=== PATIENT | female | born 1990 | race Caucasian/White ===

== ENCOUNTER 2017-04-29 13:05 | Outpatient (CLI) | payer MEDICAID, SELFPAY ==
[2017-04-29 13:30] VITALS: BMI 25.1
--- NOTE | 2017-04-30 05:44 | OB.TRI.NOTE ---
History of Present Illness Reason For Visit: NST Date of Service: 04/29/17 Gestational age: 40 History of Present Illness: 26 yo at 40 2/7 wk presents for twice weekly NST as has anterior placenta and unable to feel movement. No C/O UCs, ROM, or vaginal bleeding Home Medications Medication Instructions Recorded Vits [Prenatabs FA ] 1 tablet PO DAILY 03/22/13 DiphenhydrAMINE [Benadryl] 25 mg PO QHS PRN PRN 04/22/17 Allergies hydrocodone bitartrate [From Vicodin] Adverse Reaction (Verified 04/19/17 20:26) Vomiting NST - FHR Rate Baby A Baseline: 120-130 with accels to 150s Variability:: Moderate Accelerations:: 15 x 15 Decelerations:: Variable - to 105 lasting less than 10 sec . (ULISES in ofc 3-4 d ago -- 20 cm) NST Reactive:: Yes, Appropriate for gestational age FHR Category:: Category I Uterine Activity:: Irreg , rare UC noted. Impression/Plan 40 2/7 wk EGA Unable to feel movement, anterior placenta NST reactive. Home. RTO for scheduled appt Consider induction NST twice weekly until delivery
== END 2017-04-29 14:30 | disposition home or self-care (01) ==
LOC: WPOUT 13:23 → WP 13:25
PROVIDERS: Family Provider Family Medicine; PCP Family Medicine; Visit Provider Obstetrics & Gynecology
DX: O43.893 Other placental disorders, third trimester (principal); O36.8190 Decreased fetal movements, unspecified trimester, not applicable or unspecified; Z3A.40 40 weeks gestation of pregnancy
CPT/HCPCS: 59025; 59050; 99218; G0378

== ENCOUNTER 2017-04-30 12:25 | Outpatient (CLI) | payer MEDICAID, SELFPAY ==
[2017-04-30 12:46] VITALS: BMI 25.1
--- NOTE | 2017-04-30 20:17 | OB.TRI.NOTE ---
History of Present Illness Reason For Visit: FALL Date of Service: 04/30/17 Gestational age: 40 Home Medications Medication Instructions Recorded Vits [Prenatabs FA ] 1 tablet PO DAILY 03/22/13 DiphenhydrAMINE [Benadryl] 25 mg PO QHS PRN PRN 04/22/17 Allergies hydrocodone bitartrate [From Vicodin] Adverse Reaction (Verified 04/19/17 20:26) Vomiting - Pertinent Past Medical History Pertinent Past Medical History: 26 yo with anterior placenta, not able to feel FM. Presents after fall onto her buttocks, hit the step on her truck. No abdominal trauma. Sent in for monitoring and eval / fall. NST - FHR Rate Baby A Baseline: 110-120 with accels to 150s Variability:: Moderate Accelerations:: 15 x 15 Decelerations:: None NST Reactive:: Yes, Appropriate for gestational age FHR Category:: Category I Uterine Activity:: No UCs noted Impression/Plan 26 yo at 40 3/7 wk EGA s/p minor fall. Reactive NST. No UCs, no labor Home. RTO as scheduled for next PNV.
== END 2017-04-30 13:55 | disposition home or self-care (01) ==
LOC: WPOUT 12:41 → WP 12:43
PROVIDERS: Family Provider Family Medicine; PCP Family Medicine; Visit Provider Obstetrics & Gynecology
DX: Z04.3 Encounter for examination and observation following other accident (principal); O36.8130 Decreased fetal movements, third trimester, not applicable or unspecified; W17.89XA Other fall from one level to another, initial encounter; Y93.9 Activity, unspecified; Y92.9 Unspecified place or not applicable; Y99.9 Unspecified external cause status; Z3A.40 40 weeks gestation of pregnancy
CPT/HCPCS: 59025; 59050; 99218; G0378

== ENCOUNTER 2017-05-02 06:52 | Inpatient (IN) | payer MEDICAID, SELFPAY ==
[2017-05-02 07:17] VITALS: BMI 24.9
[2017-05-02] MEDS: Lactated Ringers 1,000 ML 50 ML IV ×2 (07:35→12:12)
[2017-05-02] MEDS: Oxytocin 30 units/NS 500 ml 30 UNITS/500 ML IV.SOLN IV (07:45)
[2017-05-02 08:13] LABS: Hematocrit 35.6 % (37-47); Hemoglobin 11.8 g/dl (12.0-15.0); Mean Corp Hgb Conc 33.1 g/gl (32-36); Mean Corpuscular Hgb 30.9 pg (27.0-32.0); Mean Corpuscular Volume 93.2 fL (81-99); Mean Platelet Vol. 9.4 fl (6.2-12.0); Platelet Count 172 K/mm3 (150-450); RBC Distribution Width CV 13.7 % (11.6-14.6); RBC Distribution Width SD 46.4 fl (35.1-43.9); Red Blood Count 3.82 M/mm3 (4.2-5.4); White Blood Count 10.4 K/mm3 (4.4-11.0)
[2017-05-02 08:20] LABS: Scan Indicated on CBC? Y/N NO
--- NOTE | 2017-05-02 08:44 | PCM.PN.BLA ---
Progress Note LABOR PROGRESS NOTE Here for induction of labor 40+wks. Feeling some mild cramping and not anything strong. AVSS EFM 110-120s avg variability. Accels Category I tracing UCs rare and very irregular CX: high/FT (1-2 cm) No AROM yet A/P: 40+ wk induction. Pitocin induction. AROM as able.
--- NOTE | 2017-05-02 12:28 | PN_ITS ---
Progress Note LABOR INDUCTION 40+ wks. Feeling a little cramping, but nothing bad AVSS Pitocin at 14 mIU/min. EFM 110-120s with avg variability, accels. Category I tracing UCs q 4-5 mostly CX: /mod consistency, high. AROM vtx well applied to cervix. Clear fluid., mod amt. A/P: 40+ wk induction Continue pitocin. AROM performed. EFM reassuring.
--- NOTE | 2017-05-02 17:30 | PCM.PN.BLA ---
Progress Note Labor progress note Induction 40 5/7 wk Comfortable w/ epidural. Pitocin cut in half to 10 mIU/min d/t variable deceleration noted. EFM 110-120s avg variability. One variable noted. Now occasional early decel UC q 3-5 mins at present CX: 6/80/-[address] A/P: 40 5/7 wk induction progress noted. Hinojosa to be inserted . Watch progress and descent. Continue pitocin per protocol to adequate mVUs Anticipate .
[2017-05-02] MEDS: Oxytocin 30 units/NS 500 ml 30 UNITS/500 ML IV.SOLN 334 UNITS IV (18:10)
--- NOTE | 2017-05-02 18:17 | PCM.OB.VAG ---
Vaginal Delivery Maternal Presentation: Medically Indicated Induction 40 5/7 wk EGA induction of labor, postdates Method of Induction: Pitocin, Amniotomy Amniotic Membrane Rupture Type: Artificial Amniotic Fluid Description: Clear Final ANTONI: 04/27/17 Final ANTONI Source: US <20 weeks Gestational age: 40 Weeks and 5 Days Date of Procedure: 05/02/17 Pre-Operative Diagnosis: 40 5/7 wk EGA induction Post-Operative Diagnosis: Same Surgery/ Procedure Performed: Spontaneous Vaginal Delivery Type of Anesthesia: Epidural Description of Procedure: of a rocha viable male over intact perineum. Head delivered LUIS ALBERTO. Nuchal cord x one reduced at delivery. Shoulders delivered easily. OP and nares bulb suctioned on abdomen. Baby vigorous and crying to maternal abdomen. Delayed cord clamping and then clamped and cut. Routine cord blood collected for typing. PP exam: no laceration, no repair Placenta delivered by spont expulsion, expression 3V cord, normal appearing and intact with trailing membranes EBL 350 cc pt and tolerated delivery well. to recovery, stable condition. Ray Jaime Counts correct x two. Presentation: Vertex, LUIS ALBERTO Placental Delivery Description: Spontaneous, Expressed Placenta Disposition: [facility] Cord Vessel Description: 3 Vessels Nuchal Cord Compression: Without compression Cord Entanglement: Around neck x 1, loose Drain: Hinojosa to straight drain Estimated Blood Loss: 350 A gender: Male (1 minute): 9 (5 minute): 9 Episiotomy Description: None Laceration: None Medications given after delivery: IV Pitocin Complications: None
--- NOTE | 2017-05-02 18:21 | PCM.DCVAG ---
Discharge Diet: No Restrictions Discharge Activity: May Shower, May Take a Tub Bath May resume sexual activity in: 4-6 weeks Additional Activity Instructions:: Nothing in the vagina for 4-6 weeks. You may return to work/school in 6 weeks. Additional Instructions: If you experience any of the following, contact your healthcare provider. Bleeding that soaks a pad every hour for 2 hours Fever 100.4 or higher Unrelieved abdominal pain Problems urinating (including inability to urinate or burning while urinating). Visual changes Severe headache Flu-like symptoms Pain or redness in one of both of your breasts Pain, warmth, tenderness or swelling in your legs, especially the calf area Frequent nausea and vomiting Symptoms of depression or anxiety If you experience any of the following, call 911 or go to the nearest Emergency Room. Chest pain Problems breathing Seizure activity Partial or complete paralysis of a body part, slurred speech, weakness or drooping of the face, or a sudden inability to walk or hold your balance Allergies/Adverse Reactions: Allergies hydrocodone bitartrate [From Vicodin] Adverse Reaction (Verified 05/02/17 08:40) Vomiting Medications to take at Discharge Vits [Prenatabs FA ] 1 tablet PO DAILY 03/22/13 DiphenhydrAMINE [Benadryl] 25 mg PO QHS PRN PRN 04/22/17 Please Follow Up With: Lauren Orta MD - [phone] When: Call to make an appointment with your doctor in 6 weeks. Primary Care Physician: Khanh Buchanan MD [Primary Care Provider] - Proposed Discharge Date: 05/04/17
--- NOTE | 2017-05-02 18:22 | DCINST_ITS ---
Discharge Diet: No Restrictions Discharge Activity: May Shower, May Take a Tub Bath May resume sexual activity in: 4-6 weeks Additional Activity Instructions:: Nothing in the vagina for 4-6 weeks. You may return to work/school in 6 weeks. Additional Instructions: If you experience any of the following, contact your healthcare provider. * Bleeding that soaks a pad every hour for 2 hours * Fever 100.4 or higher * Unrelieved abdominal pain * Problems urinating (including inability to urinate or burning while urinating) . * Visual changes * Severe headache * Flu-like symptoms * Pain or redness in one of both of your breasts * Pain, warmth, tenderness or swelling in your legs, especially the calf area * Frequent nausea and vomiting * Symptoms of depression or anxiety If you experience any of the following, call 911 or go to the nearest Emergency Room. * Chest pain * Problems breathing * Seizure activity * Partial or complete paralysis of a body part, slurred speech, weakness or drooping of the face, or a sudden inability to walk or hold your balance Allergies/Adverse Reactions: Allergies hydrocodone bitartrate [From Vicodin] Adverse Reaction (Verified 05/02/17 08:40) Vomiting Medications to take at Discharge Vits [Prenatabs FA ] 1 tablet PO DAILY 03/22/13 DiphenhydrAMINE [Benadryl] 25 mg PO QHS PRN PRN 04/22/17 Please Follow Up With: Lauren Orta MD - [phone] When: Call to make an appointment with your doctor in 6 weeks. Primary Care Physician: Khanh Buchanan MD [Primary Care Provider] - Proposed Discharge Date: 05/04/17
[2017-05-02] MEDS: Methylergonovine 0.2 MG/ML Ampul IM (18:35)
[2017-05-02] MEDS: Oxytocin 30 units/NS 500 ml 30 UNITS/500 ML IV.SOLN 167 UNITS IV (18:40)
[2017-05-02] MEDS: Ondansetron 4 MG/2 ML Vial IV (20:05)
[2017-05-02] MEDS: Oxytocin 30 units/NS 500 ml 30 UNITS/500 ML IV.SOLN 999 UNITS IV (20:12)
[2017-05-02] MEDS: Acetaminophen 500 MG Tablet 1000 MG PO (20:24)
[2017-05-02 21:01] VITALS: BP 110/66; PULSE 72; RESP 18; TEMP 37.1; O2SAT 98
[2017-05-02] MEDS: 0.9% Saline Lock 10 ML Syringe IV (21:33)
--- NOTE | 2017-05-02 22:22 | NURSING ---
2205 epidural cath d/c'd with blue tip intact. bandaid applied 2208 bray cath d/c'd pt tolerated well
[2017-05-02 23:31] VITALS: BP 103/60; PULSE 82; RESP 16; TEMP 36.8; O2SAT 98
[2017-05-02] MEDS: Ibuprofen 600 MG Tablet PO (23:33)
[2017-05-03 04:39] VITALS: BP 107/59; PULSE 61; RESP 17; TEMP 36.9; O2SAT 96
[2017-05-03] MEDS: Acetaminophen 500 MG Tablet 1000 MG PO ×2 (04:44→11:49)
[2017-05-03 05:12] LABS: Hematocrit 35.1 % (37-47); Hemoglobin 11.8 g/dl (12.0-15.0); Mean Corp Hgb Conc 33.6 g/gl (32-36); Mean Corpuscular Hgb 31.4 pg (27.0-32.0); Mean Corpuscular Volume 93.4 fL (81-99); Mean Platelet Vol. 9.4 fl (6.2-12.0); Platelet Count 178 K/mm3 (150-450); RBC Distribution Width CV 13.5 % (11.6-14.6); RBC Distribution Width SD 44.7 fl (35.1-43.9); Red Blood Count 3.76 M/mm3 (4.2-5.4); White Blood Count 15.1 K/mm3 (4.4-11.0)
[2017-05-03 05:14] LABS: Scan Indicated on CBC? Y/N NO
--- NOTE | 2017-05-03 07:29 | PCM.PN.OB ---
Subjective: PPD#1 Induction at 40 5/7 wk EGA Doing well and considering going home later today. Would like to go home in evening. Breast feeding well. Cramping some, but manageable. Bleeding much brand executive - Physical Exam General: Alert, Oriented x3, Cooperative, No apparent distress HEENT: Atraumatic Neck: Supple Abdomen: Soft - fundus firm NT approx 1-2 cm inferior to umbilicus Neurological: Cranial nerves II-XII grossly intact Psych/Mental Status: Normal Affect Vital Signs Temp Pulse Resp BP Pulse Ox 98.4 F 61 17 107/59 L 96 05/03/17 04:39 05/03/17 04:39 05/03/17 04:39 05/03/17 04:39 05/03/17 04:39 Oxygen Delivery Method Room Air Weight: 72.121 kg Body Mass Index (BMI) 24.9 Intake and Output for Last 24 Hours 05/01/17 05/02/17 05/03/17 23:59 23:59 23:59 Intake Total 1201 / 1201 Output Total 1300 / 1300 300 / 300 Balance -99 / -99 -300 / -300 Laboratory Tests Past 24 Hrs 05/02/17 05/02/17 05/03/17 07:35 07:35 04:50 WBC 10.4 15.1 H RBC 3.82 L 3.76 L Hgb 11.8 L 11.8 L Hct 35.6 L 35.1 L MCV 93.2 93.4 MCH 30.9 31.4 MCHC 33.1 33.6 RDW 13.7 13.5 RDW Differential 46.4 H 44.7 H Plt Count 172 178 MPV 9.4 9.4 Blood Type O POSITIVE Antibody Screen NEGATIVE Assessment/Plan PPD#1 induction 40 5/7 wk EGA Hgb unchanged from admission CBC. Doing well. Requests dischg home later in evening. D/C home today. Instructions given. RTO in 6 wk for pp check
[2017-05-03] MEDS: Ibuprofen 600 MG Tablet PO ×2 (07:39→15:36)
[2017-05-03 08:00] VITALS: BP 105/65; PULSE 61; RESP 16; TEMP 36.5; O2SAT 99
[2017-05-03] MEDS: Prenatal Vits Tablet 1 TABLET PO (10:40)
[2017-05-03 11:51] VITALS: BP 109/59; PULSE 66; RESP 16; TEMP 36.5; O2SAT 98
[2017-05-03 15:30] VITALS: BP 106/62; PULSE 65; RESP 18; TEMP 36.3; O2SAT 99
[2017-05-03 19:25] VITALS: BP 110/60; PULSE 73; RESP 18; TEMP 36.6; O2SAT 98
== END 2017-05-03 20:10 | disposition home or self-care (01) | DRG 373 ==
PROVIDERS: Admitting Provider Obstetrics & Gynecology; Family Provider Family Medicine; PCP Family Medicine; Visit Provider Obstetrics & Gynecology
DX: O48.0 Post-term pregnancy (principal); O36.8130 Decreased fetal movements, third trimester, not applicable or unspecified; O69.81X0 Labor and delivery complicated by cord around neck, without compression, not applicable or unspecified; O76 Abnormality in fetal heart rate and rhythm complicating labor and delivery; Z04.3 Encounter for examination and observation following other accident; W17.89XA Other fall from one level to another, initial encounter; Y93.9 Activity, unspecified; Y92.9 Unspecified place or not applicable; Y99.9 Unspecified external cause status; Z86.2 Personal history of diseases of the blood and blood-forming organs and certain disorders involving the immune mechanism; Z3A.40 40 weeks gestation of pregnancy; Z37.0 Single live birth
CPT/HCPCS: 59025; 59050; 85027; 86850; 86900; 99218; J7120; A4216; G0378; J2405

== ENCOUNTER → 2017-06-20 22:09 | Outpatient (CLI) | payer MEDICAID, SELFPAY ==
[2017-06-21 01:27] LABS: Chlamydia Trachomatis by PCR Negative (Negative); Neisserai gonorrhoeae by PCR Negative (Negative); Probe Check PASS; Sample Adequacy Control PASS; Specimen Processing Control PASS
== END ==
PROVIDERS: Family Provider Family Medicine; PCP Family Medicine; Visit Provider Obstetrics & Gynecology
DX: Z11.3 Encounter for screening for infections with a predominantly sexual mode of transmission (principal)
CPT/HCPCS: 87491; 87591

== ENCOUNTER 2019-09-29 13:35 | Emergency (ER) | payer SELFPAY ==
[2019-09-29 13:37] VITALS: BP 143/91; PULSE 71; RESP 17; TEMP 37; O2SAT 99; BMI 21.5
--- NOTE | 2019-09-29 13:50 | RAD_ITS ---
STUDY: X-RAY - LEFT KNEE REASON FOR EXAM: Female, 29 years old. Dislocated patella after slipping. Displaced and reduced. TECHNIQUE: 4 view(s) of the knee. COMPARISON: None. FINDINGS: Osseous structures about the knee are intact, normally articulated, normally mineralized. The patella articulates normally within the trochlear groove. There is no evidence of kissing contusion or bone injury. There is a very minimal suprapatellar knee joint effusion. RAD/Knee 4 or More Views IMPRESSION: Minimal effusion. Intact osseous structures appropriately articulated. Electronically Signed: Anant Benavidez MD at 15:02 EDT Tel , Service support ,
--- NOTE | 2019-09-29 14:03 | ED.DCSUM_ITS ---
History of Present Illness Chief Complaint: Lower Extremity Injury Informant: Patient Onset: Yesterday Context: Sudden Onset Timing: Continuous Quality: Pain Location: Left knee Current Severity: Mild Maximum Severity: Severe Worsened by: Weightbearing and movement Relieved by: Much improved if supine Associated Symptoms: Difficulty ambulating. Dislocated patella laterally Narrative: Patient is a 29-year-old female who slipped on water. She states she dislocated her patella. The patella was located superior and lateral to its present position. She states she pushed it back in. The knee swelled. She presents because of increased pain and swelling. She denies prior history of patella subluxation or dislocation. She has never seen orthopedic surgeon. She denies paresthesia, anesthesia or motor weakness. She has no other complaints. Prior similar symptoms: No Recent Illness/Hospitalization: No - Past Medical History (1) No significant past medical history Status: Acute Past Medical History - Allergies and Home Meds Allergies/Adverse Reactions: Allergies hydrocodone bitartrate [From Vicodin] Adverse Reaction (Verified 09/29/19 13:36) Vomiting Primary Care Physician: Khanh Buchanan MD [Primary Care Provider] - Prior records reviewed: Yes Past Medical History: None Surgical History: noncontributory Lives: With Family Smoking Status: Never smoker Alcohol: None Drugs: None Review of Systems General: Denies: Chills, Fever, Malaise Musculoskeletal: Reports: Swelling, Extremity Pain. Denies: Myalgias, Arthralgias, Neck pain, Back pain Skin: Denies: Rash, Abrasions, Wounds Neurological: Denies: Weakness, Parasthesia, Numbness Hematologic: Denies: Easy bruising Physical Exam Vital Signs/Narrative: Vital Signs Temp Pulse Resp BP Pulse Ox 09/29/19 13:37 98.6 F 71 17 143/91 H 99 Inital Vital Signs reviewed: Yes General: Well nourished, Well developed, No Acute Distress Head: Normocephalic, Atraumatic Eyes: Perrl, EOMI. Negative for: Pale conjunctiva, Scleral icterus ENT: Moist mucous membranes, No rhinorrhea Neck: Supple, Nontender Cardiovascular: Regular rate, Regular rhythm Respiratory: No distress Extremities: No edema, Tenderness, - - Left knee is swollen. The patella is slightly ballotable. There is an effusion. She complains of pain with varus and valgus stress testing. There is no laxity. She does have mild joint line tenderness. She is able to extend to 180 degrees and flex to approximately 100 degrees. Unable to perform modified Heike's test. Lockman's test was negative for laxity. DP and PT pulse are palpable. There is no pain the patient over the lateral medial malleolus.. Negative for: Nontender, Edema, Calf Tenderness Skin: Normal color, No rash, No Trauma. Negative for: Cyanosis, Diaphoresis, Jaundice Neurological: Alert, Oriented x3, Cranial nerves II-XII grossly intact, Normal Strength, Normal Sensation Psychological: Normal affect Diagnostic/Tx/Re-eval Chest X-Ray - ED: Read by ED Physician, - - 4 view x-ray of the knee reveals a suprapatellar effusion; otherwise, the x-ray is unremarkable i.e. no fracture, subluxation or dislocation. 09/29/19 13:50 Knee 4 or More Views [RAD] Stat - Medical Decision Making There is obtained to rule out fracture. No fracture was noted. There was an effusion noted. Patient was treated with knee immobilizer and referred to orthopedics line maintainer section Dr. Bairon Mcrae ED Disposition - Plan for ED Patient: Disposition: Home or Assisted Living Diagnosis: Dislocation of patella, left, closed Instructions: ED Dislocation Patella Referrals: Khanh Buchanan MD [Primary Care Provider] - Bairon Mcrae DO [STAFF PHYSICIAN] - 3-5 Days Additional Instructions: Knee immobilizer while up and about. May remove when you go to bed. Elevate knee as much as possible. Apply ice for the next 2 to 3 days. Take either Tylenol or ibuprofen for discomfort.
== END 2019-09-29 14:34 | disposition home or self-care (01) ==
PROVIDERS: Emergency Provider Emergency Medicine; PCP Family Medicine
DX: S83.005A Unspecified dislocation of left patella, initial encounter (principal); W01.0XXA Fall on same level from slipping, tripping and stumbling without subsequent striking against object, initial encounter; Y93.9 Activity, unspecified; Y92.9 Unspecified place or not applicable
CPT/HCPCS: 73564; 99283

== ENCOUNTER → 2019-10-26 08:39 | Outpatient (CLI) | payer SELFPAY ==
[2019-10-23 08:11] VITALS: BMI 21.5
--- NOTE | 2019-10-26 08:40 | MRI_ITS ---
STUDY: MRI LEFT KNEE REASON FOR EXAM: Female, 29 years old. Pain. Recent patellar dislocation. TECHNIQUE: Standardized fat and water weighted pulse sequences were obtained in all 3 orthogonal planes. COMPARISON: X-ray September 29, 2019 FINDINGS: Normal medial meniscus. Normal hyaline cartilage of the medial femorotibial compartment. Normal medial femoral condyle and tibial plateau. There is a partial sprain of the MCL with interstitial and periligamentous edema. Normal distal semimembranosus, gracilis and semitendinosus tendons. Normal lateral meniscus. Normal hyaline cartilage of the lateral femorotibial compartment. There is reactive marrow edema of the lateral femoral condyle. Normal proximal tibiofibular articulation. Normal lateral collateral (fibular) ligament. Normal popliteus tendon. Normal biceps femoris tendon. Normal anterior cruciate ligament (ACL). Normal posterior cruciate ligament (PCL). Normal congruent patellofemoral articulation. There is marrow edema of the inferior medial patella. Normal hyaline cartilage of the patellofemoral compartment. There is a partial sprain of the medial parapatellar retinaculum. There is sprain and tear of the medial patellofemoral ligament, series 2 image . Normal quadriceps tendon. Normal patellar tendon. Normal Hoffa''s fat pad. There is a small volume joint effusion. The soft tissues are unremarkable. The otherwise visualized osseous structures are unremarkable. MRI/Lower Ext Joint Only (Routine) IMPRESSION: Sequela of recent dislocation with bone bruise of the patella and lateral femoral condyle. Sprain and tears of the medial patellar retinaculum and medial patellofemoral ligament. Electronically Signed: Reg Villarreal MD at 11:20 EDT , Service support ,
== END ==
LOC: MRI 08:40
PROVIDERS: PCP Family Medicine; Referring Provider Orthopaedic Surgery; Visit Provider Orthopaedic Surgery
DX: M23.92 Unspecified internal derangement of left knee (principal)
CPT/HCPCS: 73721

== ENCOUNTER → 2020-07-01 10:07 | Outpatient (CLI) | payer OTHER, SELFPAY ==
[2019-11-01 07:52] VITALS: BMI 21.5
[2020-07-01 12:28] LABS: Vitamin D,25 Hydroxy 28.4 ng/mL
[2020-07-01 12:38] LABS: Anion Gap 8 (5-15); BUN 7 mg/dL (7-18); Calcium,Total 9.2 mg/dL (8.5-10.1); Chloride 105 mmol/L (98-107); Cholesterol 122 mg/dL (200); Creatinine, Serum 0.78 mg/dL (0.55-1.02); EST Glomerular Filtration Rate 91 mL/min (>60); Est Glom Filt Rate - Afr Amer 111 mL/min (>60); Glucose 85 mg/dL (74-106); High Density Lipoprotein 73 mg/dL; Potassium 4.6 mmol/L (3.5-5.1); Sodium Level 139 mmol/L (136-145); Triglycerides 56 mg/dL; Very Low Density Lipoprotein 11 mg/dL (5-40)
== END ==
PROVIDERS: PCP Family Medicine; Referring Provider Family Medicine; Visit Provider Family Medicine
DX: Z00.00 Encounter for general adult medical examination without abnormal findings (principal)
CPT/HCPCS: 36415; 80048; 80061; 82306

== ENCOUNTER → 2021-12-20 | Outpatient (CLI) | payer OTHER, SELFPAY ==
[2021-12-20 11:09] LABS: Anion Gap 7 (5-15); BUN 11 mg/dL (7-18); BUN/Creat Ratio 11.9 RATIO (10-20); Calcium,Total 9.1 mg/dL (8.5-10.1); Chloride 104 mmol/L (98-107); Cholesterol 137 mg/dL (200); Creatinine, Serum 0.92 mg/dL (0.55-1.02); EST Glomerular Filtration Rate 74 mL/min (>60); Est Glom Filt Rate - Afr Amer 90 mL/min (>60); Glucose 91 mg/dL (74-106); High Density Lipoprotein 63 mg/dL; Potassium 4.1 mmol/L (3.5-5.1); Sodium Level 139 mmol/L (136-145); Thyroid Stim Hormone (TSH) 1.24 uIU/mL (0.358-3.74); Triglycerides 61 mg/dL; Very Low Density Lipoprotein 12 mg/dL (5-40)
== END | disposition home or self-care (01) ==
LOC: MFPLAB 09:03
PROVIDERS: PCP Family Medicine; Visit Provider Family Medicine
DX: Z00.00 Encounter for general adult medical examination without abnormal findings (principal)
CPT/HCPCS: 36415; 80048; 80061; 84443

== ENCOUNTER → 2022-08-12 | Outpatient (CLI) | payer OTHER, SELFPAY ==
[2022-08-22 20:08] LABS: HPV APTIMA, High Risk Positive (Negative); HPV Genotype 16, Aptima Negative (Negative); HPV Genotype 18,45 Aptima Negative (Negative)
== END | disposition home or self-care (01) ==
LOC: LABSPEC 16:23
PROVIDERS: PCP Family Medicine; Referring Provider Advanced Practice Midwife; Visit Provider Advanced Practice Midwife
DX: Z12.4 Encounter for screening for malignant neoplasm of cervix (principal)
CPT/HCPCS: 87624; 88175; G0145

== ENCOUNTER → 2024-07-10 | Outpatient (CLI) | payer OTHER, SELFPAY ==
[2024-07-13 09:08] LABS: Chlamydia By Nucleic Acid AMP Negative (Negative); Gonococcus By Nucleic Acid AMP Negative (Negative)
== END | disposition home or self-care (01) ==
PROVIDERS: PCP Family Medicine; Referring Provider Advanced Practice Midwife; Visit Provider Advanced Practice Midwife
DX: Z11.3 Encounter for screening for infections with a predominantly sexual mode of transmission (principal); Z12.4 Encounter for screening for malignant neoplasm of cervix
CPT/HCPCS: 87491; 87591; 87624; 88175; G0145